=== PATIENT | male | born 1960 | race African-American/Black ===

== ENCOUNTER 2018-10-13 11:05 | Emergency (ER) | payer SELFPAY ==
[~2018-10-13] VITALS: Ht 188 cm; Wt 105.9 kg
--- NOTE | 2018-10-13 11:25 | PHYS DOC ---
Past History Past Medical History: Cancer Past Surgical History: Appendectomy, Other Alcohol Use: Occasionally Drug Use: None Adult General Chief Complaint Chief Complaint: COUGH HPI HPI Patient is a 58-year-old male who comes in with report of shortness of breath for approximately a week now. He indicates that he has had a productive cough and states that shortness of breath is worsened with minimal exertion and lying down flat. He denies any lower extremity swelling or pain. She he does indicate that he has some pain in his chest when he coughs. He describes it as just soreness and burning. Patient is not aware of any fever. He denies any vomiting or diarrhea.[] Review of Systems Review of Systems Constitutional: Denies fever or chills [] Respiratory: Complains of cough and shortness of breath [] Cardiovascular: No additional information not addressed in HPI [] Musculoskeletal: Denies back pain or joint pain [] Integument: Denies rash or skin lesions [] Neurologic: Denies headache, focal weakness or sensory changes [] All other systems were reviewed and found to be within normal limits, except as documented in this note. Allergies Allergies Allergies Coded Allergies Type Severity Reaction Last Updated Verified No Known Drug Allergies 10/13/18 No Physical Exam Physical Exam Constitutional: Well developed, well nourished, no acute distress, non-toxic appearance. [] HENT: Normocephalic, atraumatic, bilateral external ears normal, oropharynx moist, no oral exudates, nose normal. [] Eyes: PERRLA, EOMI, conjunctiva normal, no discharge. [] Neck: Normal range of motion, no tenderness, supple, no stridor. [] Cardiovascular:Heart rate regular rhythm, no murmur [] Lungs & Thorax: Coarse rhonchi are noted bilaterally to auscultation [] Abdomen: Bowel sounds normal, soft, no tenderness. [] Skin: Warm, dry, no erythema, no rash. [] Extremities: No tenderness, no cyanosis, no clubbing, ROM intact, no edema. [] Neurologic: Alert and oriented X 3, no focal deficits noted. [] Current Patient Data Vital Signs Vital Signs Date Time Temp Pulse Resp B/P (MAP) Pulse Ox O2 Delivery O2 Flow Rate FiO2 10/13/18 11:12 99.1 88 18 94 Room Air EKG EKG [] Radiology/Procedures Radiology/Procedures [] Impressions: PROCEDURE: PORTABLE CHEST 1V Chest radiograph 10/13/2018 11:17 AM INDICATION: Cough COMPARISON: Chest, abdomen and pelvis October 13, 2018 TECHNIQUE: Frontal view of the chest is provided. FINDINGS: The cardiomediastinal silhouette is within normal limits. There are no pleural effusions. There is no pulmonary vascular congestion. There is no pneumothorax. Perihilar alveolar airspace disease identified. No significant osseous abnormality is identified. IMPRESSION: Perihilar alveolar airspace disease may represent pulmonary pneumonitis versus pulmonary edema or hemorrhage. Electronically signed by: Criselda Sanders MD (10/13/2018 11:52 AM) Course & Med Decision Making Course & Med Decision Making Pertinent Labs and Imaging studies reviewed. (See chart for details) [] Dragon Disclaimer Dragon Disclaimer This electronic medical record was generated, in whole or in part, using a voice recognition dictation system. Departure Departure: Impression: Primary Impression: Pneumonia Disposition: 01 HOME, SELF-CARE Condition: STABLE Referrals: OLIMPIA YAÑEZ MD (PCP) Patient Instructions: Pneumonia, Adult, Pneumonitis Scripts Azithromycin (ZITHROMAX) 250 Mg Tablet 1 PKG PO UD for infection, #6 TAB Prov: YOLETTE SELF Jr. DO 10/13/18 Amoxicillin/Potassium Clav (AUGMENTIN 875-125 TABLET) 1 Each Tablet 1 TAB PO BID for infection, #20 TAB Prov: YOLETTE SELF Jr. DO 10/13/18 Problem Qualifiers Primary Impression: Pneumonia Pneumonia type: due to unspecified organism Laterality: bilateral Lung location: unspecified part of lung Qualified Codes: J18.9 - Pneumonia, unspecified organism YOLETTE SELF Jr. DO Oct 13, 2018 11:25
[2018-10-13 11:44] VITALS: BP 165/107
[2018-10-13 11:49] LABS: BASO # 0.1 x10^3/uL (0.0-0.2); BASO % 1 % (0-3); EOS # 0.2 x10^3/uL (0.0-0.7); EOS % 2 % (0-3); HEMATOCRIT 37.9 % (39.0-53.0); HEMOGLOBIN 12.5 g/dL (13.0-17.5); LYMPH # 1.2 x10^3/uL (1.0-4.8); LYMPH % 13 % (24-48); MEAN CORPUSCULAR HEMOGLOBIN 25 pg (25-35); MEAN CORPUSCULAR HGB CONC 33 g/dL (31-37); MEAN CORPUSCULAR VOLUME 76 fL (79-100); MONO # 0.6 x10^3/uL (0.0-1.1); MONO % 6 % (0-9); NEUT # 7.3 x10^3uL (1.8-7.7); NEUT % 78 % (31-73); PLATELET COUNT 158 x10^3/uL (140-400); RED BLOOD COUNT 5.01 x10^6/uL (4.30-5.70); RED CELL DISTRIBUTION WIDTH 13.9 % (11.5-14.5); WHITE BLOOD COUNT 9.3 x10^3/uL (4.0-11.0)
[2018-10-13] MEDS ORDERED: IPRATRPIUM/ALBUTEROL 0.5/2.5MG 3 ML NEBU. NEB ONE (11:50)
--- NOTE | 2018-10-13 11:55 | RAD ---
Chest radiograph 10/13/2018 11:17 AM INDICATION: Cough COMPARISON: Chest, abdomen and pelvis October 13, 2018 TECHNIQUE: Frontal view of the chest is provided. FINDINGS: The cardiomediastinal silhouette is within normal limits. There are no pleural effusions. There is no pulmonary vascular congestion. There is no pneumothorax. Perihilar alveolar airspace disease identified. No significant osseous abnormality is identified. IMPRESSION: Perihilar alveolar airspace disease may represent pulmonary pneumonitis versus pulmonary edema or hemorrhage. Electronically signed by: Criselda Sanders MD (10/13/2018 11:52 AM) [id number]
[2018-10-13 12:06] LABS: ALBUMIN 3.2 g/dL (3.4-5.0); ALBUMIN/GLOBULIN RATIO 0.7 (1.0-1.7); CALCIUM 9.1 mg/dL (8.5-10.1); CREATININE 0.9 mg/dL (0.7-1.3); GFR 104.9; POTASSIUM 3.9 mmol/L (3.5-5.1); TOTAL BILIRUBIN 0.6 mg/dL (0.2-1.0); TOTAL PROTEIN 7.7 g/dL (6.4-8.2)
[2018-10-13] MEDS ORDERED: AZITHROMYCIN 250 MG TABLET. PO ONE (12:15)
[2018-10-13] MEDS ORDERED: IV NORMAL SALINE 50ML 50 ML ONE (12:15)
[2018-10-13] MEDS ORDERED: cefTRIAXone SODIUM 1 GM VIAL ONE (12:15)
[2018-10-13] MEDS ORDERED: AMOX1TAB61 PO (12:21)
[2018-10-13] MEDS ORDERED: AZIT250T PO (12:21)
== END 2018-10-13 12:53 | disposition home or self-care (01) ==
LOC: ER 11:05
DX: J18.9 Pneumonia, unspecified organism (principal)
CPT/HCPCS: 36415; 71045; 80053; 83605; 83880; 85025; 87040; 94640; 96365; 99285; J0456; J0696; J7620

== ENCOUNTER → 2018-10-13 | Outpatient (CLI) | payer OTHER ==
[~2018-10-13] MED LIST: AMOX1TAB61 PO; AZIT250T PO; IOHEXOL 240 MG/ML 50ML VIAL. ONE
[2018-10-13] MEDS: IOHEXOL 300 MG/ML 75 ML VIAL. IV ONE (11:03)
--- NOTE | 2018-10-13 11:33 | RAD ---
PQRS Compliance Statement: One or more of the following individualized dose reduction techniques were utilized for this examination: 1. Automated exposure control 2. Adjustment of the mA and/or kV according to patient size 3. Use of iterative reconstruction technique PQRS Compliance Statement: One or more of the following individualized dose reduction techniques were utilized for this examination: 1. Automated exposure control 2. Adjustment of the mA and/or kV according to patient size 3. Use of iterative reconstruction technique CT chest, abdomen and pelvis 10/13/2018 10:00 AM19 10:00 AM I CATION: History of long-term tobacco use. Shortness of air, cough. History of malignancy. Colon cancer status post colon resection. CNone availablee available TECHNIQUE: Multiple axial CT images of the chest, abdomen and pelvis were obtained after the intravenous administration of nonionic contrast. Coronal and sagittal reformats are provided. FINDINGS: Thyroid gland is normal in appearance. Right paratracheal lymph node measures 11 mm by short axis (series 4, image 30). Prevascular lymph node measures 7 mm by short axis (series 4, image 32). Left hilar lymph node measures 12 mm by short axis (series 4, image 51). Right hilar lymph node measures 10 mm by short axis (series 4, image 58). Heart size is within normal limits. Thoracic aorta is normal in course and caliber. Calcified anterior pericardiophrenic lymph nodes are identified. 5 mm solid noncalcified pulmonary nodule is identified in the right upper lobe (series 4, image 54). 5 mm solid noncalcified pulmonary nodule is identified in the superior segment left lower lobe (series 4, image 58). There is a 3 mm solid noncalcified pulmonary nodule in the lateral basal segment left lower lobe (series 4, image 70). Scattered right upper lobe and perihilar groundglass opacities are identified. Bronchial wall thickening is compatible with bronchitis. Differential considerations would include multifocal pneumonitis versus developing alveolar edema. No pleural effusions or pneumothorax. There is a simple cyst in the posterior inferior right hepatic lobe measuring 19 mm. Hypodense lesion in the spleen measures 19 mm which is indeterminate. Adrenal glands, pancreas and gallbladder are normal in appearance. Abdominal aorta is normal in course and caliber. No pathologically enlarged lymph nodes are identified in abdomen and pelvis. There is no free fluid or free intraperitoneal air. Oral contrast was administered. Opacified bowel loops demonstrate normal mucosal fold pattern. No evidence for residual disease. The kidneys enhance symmetrically. There is no suspicious renal mass. There is no hydronephrosis. There are no suspected calculi within the kidneys, ureters or urinary bladder. Mild circumferential bladder wall thickening may be secondary to cystitis versus underdistention. Prostate and seminal vesicles appear normal. Scattered subcentimeter sclerotic densities within the pelvis most favor benign bone islands. Additional follow-up exams is recommended. IMPRESSION: 1. Right upper lobe and perihilar groundglass opacities may represent multifocal pneumonitis versus developing alveolar edema. 2. Bronchial wall thickening is compatible with bronchitis. 3. Solid noncalcified pulmonary nodules measure up to 5 mm. Findings remain indeterminate. Attention on follow-up exams is recommended. 4. 19 mm hypodensity within the spleen is of indeterminate etiology. Favor benign etiology such as a lymphangioma or hemangioma. 3 month follow-up CT abdomen/pelvis is recommended to assess stability. 5. Mild bladder wall thickening may be secondary to cystitis or underdistention. 6. No evidence for bowel obstruction or inflammation. Electronically signed by: Criselda Sanders MD (10/13/2018 11:30 AM) [id number]
== END | disposition home or self-care (01) ==
LOC: CT 09:28
PROVIDERS: ATTEND Family Medicine
DX: I89.8 Other specified noninfective disorders of lymphatic vessels and lymph nodes (principal); J98.4 Other disorders of lung; R91.1 Solitary pulmonary nodule; Z87.891 Personal history of nicotine dependence; Z85.038 Personal history of other malignant neoplasm of large intestine
CPT/HCPCS: 71260; 74177; Q9967

== ENCOUNTER → 2019-03-22 | Outpatient (CLI) | payer OTHER ==
[~2019-03-22] MED LIST changes: +IOHEXOL 300 MG/ML 75 ML VIAL. IV ONE
--- NOTE | 2019-03-22 17:18 | RAD ---
CT ABD PELV W/ORAL IV CONTRAST Indication: Colon cancer Technique: Postcontrast CT imaging was performed of the abdomen and pelvis, multiplanar reconstruction images submitted. Oral contrast was also given. One or more of the following individualized dose reduction techniques were utilized for this examination: 1. Automated exposure control 2. Adjustment of the mA and/or kV according to patient size 3. Use of iterative reconstruction technique. Comparison: October 13, 2018 Findings: Previously seen hypodense lesion of the spleen is not confidently identified on this exam, previously seen on the chest CT at earlier phase of enhancement. There are accessory spleens. There is again hypodense 2 cm cyst of the posterior right lobe of the liver, no new liver lesion identified. There is no adrenal nodularity. Gallbladder is present without obvious intraluminal abnormality by CT. There is no pleural fluid of the visualized lung bases. Small 0.4 cm left lower lobe pulmonary nodule image 3 series 2 is similar. Bowel is not dilated. There is no free fluid or free air. There is mild diverticulosis of the descending and sigmoid colon. There is no significant inflammatory type change about the bowel. There is prominence of the submucosal fat of the rectosigmoid colon as seen previously. No new significantly enlarged nodes are identified. There are some phleboliths in the pelvis. There are some prostate calcifications. Some scattered sclerotic foci of the pelvis are similar. There is multilevel lumbar degenerative disc disease and facet degenerative change. There is variable lumbar neural foramina compromise. IMPRESSION: 1. Previously seen hypodense lesion of the spleen is not well-visualized on this exam although previously was seen on the early arterial phase of enhancement which is not available for this exam. There is no new significant lymphadenopathy or other new abnormality. There is mild colonic diverticulosis. Electronically signed by: Luis Angel Eisenberg MD (03/22/2019 5:15 PM) [id number]
== END | disposition home or self-care (01) ==
LOC: CT 11:26
PROVIDERS: ATTEND Family Medicine
DX: K57.30 Diverticulosis of large intestine without perforation or abscess without bleeding (principal); R91.1 Solitary pulmonary nodule; M51.36 Other intervertebral disc degeneration, lumbar region; N42.89 Other specified disorders of prostate; F17.200 Nicotine dependence, unspecified, uncomplicated; Z85.038 Personal history of other malignant neoplasm of large intestine
CPT/HCPCS: 74177; Q9967